=== PATIENT | male | born 1960 | race Caucasian/White ===

== ENCOUNTER 2024-10-13 11:04 | Inpatient (IN) | payer OTHER ==
[~2024-10-13] VITALS: Ht 175.3 cm; Wt 103.5 kg
[~2024-10-13 11:04] MED LIST: AMLO10 PO; HYDACE5325 PO; HYDCHL25 PO; HYDCHL50 PO; LISI20 PO; METO25 PO; METO25ER PO; METO50 PO; Zestril PO
[2024-10-13 11:43] LABS: BASOPHILS ABSOLUTE AUTO 0.09 K/mm3 (0.00-0.23); BASOPHILS PERCENT AUTO 1 % (0-2); EOSINOPHILS ABSOLUTE AUTO 0.11 K/mm3 (0.00-0.68); EOSINOPHILS PERCENT AUTO 1 % (0-6); Hematocrit 52.6 % (37.0-53.0); Hemoglobin 17.1 g/dL (13.5-17.5); IMMATURE GRAN ABSOLUTE AUTO 0.04 K/mm3 (0.00-0.10); IMMATURE GRAN PERCENT AUTO 0 % (0-1); LYMPHOCYTES ABSOLUTE AUTO 2.52 K/mm3 (0.84-5.20); LYMPHOCYTES PERCENT AUTO 23 % (21-46); MONOCYTES ABSOLUTE AUTO 0.51 K/mm3 (0.16-1.47); MONOCYTES PERCENT AUTO 5 % (4-13); Mean Corpuscular HGB Conc 32.5 g/dL (31.5-36.5); Mean Corpuscular Volume 90 fL (80-100); NEUTROPHILS ABSOLUTE AUTO 7.86 K/mm3 (1.96-9.15); NEUTROPHILS PERCENT AUTO 71 % (41-73); NRBC ABSOLUTE 0.00 K/mm3 (0.00-0.02); NRBC Auto 0.0 /100 WBC (0.0-0.2); Platelet Count 360 K/mm3 (150-400); RDW Coefficient Variation 15.7 % (11.7-14.2); RDW Standard Deviation 51.4 fL (35.1-46.3)
[2024-10-13 12:00] LABS: Alanine Aminotransfer (ALT/SGP 21.0 U/L (12-78); Albumin, Blood 3.4 g/dL (3.4-5.0); Albumin/Globulin Ratio 0.7 (0.8-1.8); Anion Gap 10.0 mmol/L (3-11); Aspartate Aminotrans (AST/SGOT 20.0 U/L (12-37); Bilirubin, Total 0.9 mg/dL (0.1-1.0); Blood Urea Nitrogen 15.0 mg/dL (8-24); CO2, Blood 26.0 mmol/L (21-32); Calcium, Blood 9.1 mg/dL (8.5-10.1); Chloride, Blood 106.0 mmol/L (98-108); Creatinine, Blood 1.31 mg/dL (0.60-1.20); Globulin, Blood 5.1 g/dL (2.2-4.0); Glucose, Blood 114.0 mg/dL (70-99); Potassium, Blood 3.6 mmol/L (3.5-5.5); Sodium, Blood 138.0 mmol/L (136-145); Total Protein, Blood 8.5 g/dL (6.4-8.2)
[2024-10-13 12:03] LABS: Prothrombin Time Results 11.4 Sec (9.7-11.5)
[2024-10-13] MEDS ORDERED: Saline Nasal Spray 45 ML PRN (15:25)
[2024-10-13 16:24] LABS: CHOL/HDL RATIO 5.0; Cholesterol 196 mg/dL (50-200); HDL Cholesterol 39 mg/dL (>39); LDL/HDL RATIO 3.5; Low Density Lipoprotein Chol 137 mg/dL (0-110); Triglycerides 100 mg/dL (30-160); Very Low Density Lipoprot Chol 20 mg/dL (6-32)
[2024-10-13] MEDS ORDERED: Insulin Regular 100 UNIT/ML 10ML Vial SC SCH (16:30)
[2024-10-13 17:25] VITALS: BP 229/137
[2024-10-13 19:37] VITALS: BP 207/128
[2024-10-14 00:48] VITALS: BP 186/116
[2024-10-14 04:46] VITALS: BP 193/111
[2024-10-14 05:18] LABS: BASOPHILS ABSOLUTE AUTO 0.12 K/mm3 (0.00-0.23); BASOPHILS PERCENT AUTO 1 % (0-2); EOSINOPHILS ABSOLUTE AUTO 0.42 K/mm3 (0.00-0.68); EOSINOPHILS PERCENT AUTO 4 % (0-6); Hematocrit 47.8 % (37.0-53.0); Hemoglobin 15.7 g/dL (13.5-17.5); IMMATURE GRAN ABSOLUTE AUTO 0.05 K/mm3 (0.00-0.10); IMMATURE GRAN PERCENT AUTO 0 % (0-1); LYMPHOCYTES ABSOLUTE AUTO 4.00 K/mm3 (0.84-5.20); LYMPHOCYTES PERCENT AUTO 33 % (21-46); MONOCYTES ABSOLUTE AUTO 0.81 K/mm3 (0.16-1.47); MONOCYTES PERCENT AUTO 7 % (4-13); Mean Corpuscular HGB Conc 32.8 g/dL (31.5-36.5); Mean Corpuscular Volume 89 fL (80-100); NEUTROPHILS ABSOLUTE AUTO 6.62 K/mm3 (1.96-9.15); NEUTROPHILS PERCENT AUTO 55 % (41-73); NRBC ABSOLUTE 0.00 K/mm3 (0.00-0.02); NRBC Auto 0.0 /100 WBC (0.0-0.2); Platelet Count 309 K/mm3 (150-400); RDW Coefficient Variation 15.8 % (11.7-14.2); RDW Standard Deviation 51.0 fL (35.1-46.3)
[2024-10-14 05:39] LABS: Alanine Aminotransfer (ALT/SGP 17.0 U/L (12-78); Albumin, Blood 3.0 g/dL (3.4-5.0); Albumin/Globulin Ratio 0.7 (0.8-1.8); Anion Gap 7.0 mmol/L (3-11); Aspartate Aminotrans (AST/SGOT 16.0 U/L (12-37); Bilirubin, Total 0.7 mg/dL (0.1-1.0); Blood Urea Nitrogen 20.0 mg/dL (8-24); CO2, Blood 24.0 mmol/L (21-32); Calcium, Blood 8.4 mg/dL (8.5-10.1); Chloride, Blood 109.0 mmol/L (98-108); Creatinine, Blood 1.31 mg/dL (0.60-1.20); Globulin, Blood 4.4 g/dL (2.2-4.0); Glucose, Blood 100.0 mg/dL (70-99); Potassium, Blood 3.4 mmol/L (3.5-5.5); Sodium, Blood 137.0 mmol/L (136-145); Total Protein, Blood 7.4 g/dL (6.4-8.2)
--- NOTE | 2024-10-14 05:50 | NUR ---
SHIFT SUMMARY PT HERE FOR CVA. PT HAS BEEN RESTING IN BED COMFORTABLY. HE HAS BEEN AOX4, CALM AND COOPERATIVE. HE CALLS APPROPRIATELY. PT HAS BEEN ON TELE, NO EVENTS OVERNIGHT. HIS BP HAS BEEN HIGH, ALBEIT W/IN PARAMETERS. PT HAS BEEN ASYMPTOMATIC. PT HAS BEEN SBA OOB. PT HAS HAD NO COMPLAINTS, AND NO ACUTE EVENTS OVERNIGHT.
[2024-10-14 07:23] VITALS: BP 197/120
[2024-10-14] MEDS ORDERED: Enoxaparin 40 MG/0.4 ML SYR SC SCH (09:00)
[2024-10-14] MEDS ORDERED: Fluticasone 0.05% Nasal Spray SCH (09:00)
--- NOTE | 2024-10-14 09:10 | NUR ---
IN MRI NOW, COOEPRATIVE TO CARE
[2024-10-14 10:07] VITALS: BP 189/103
[2024-10-14 16:16] VITALS: BP 149/104
--- NOTE | 2024-10-14 17:31 | NUR ---
Pt. is awake in bed and welcomes my visit. Pt.is pleasant. Facilitated a life review. Listen with empathy and interest as the Pt. verbalizes his story of having no close family anymore and of friends who are his primary support system. A measure of rapport is established as we consider matters of jose and belief. Pt. displays evidence of trust. Prayed with the Pt. Pt. verbalized gratitude for the spiritual care visit.
--- NOTE | 2024-10-14 18:13 | NUR ---
NO ACUTE CHANGES, POSSIBLE DISCHARGE HOME TOMORROW, VSS, HTN IMPROVING, STAND BY ASSIST, CALL LIGHT WITH IN REACH
[2024-10-14 19:17] VITALS: BP 145/90
[2024-10-15 00:36] VITALS: BP 170/111
[2024-10-15 00:45] VITALS: BP 164/110
[2024-10-15 03:44] VITALS: BP 159/105
--- NOTE | 2024-10-15 04:56 | NUR ---
SHIFT SUMMARY PT A&Ox4 AND COOPERATIVE OF CARE. PT C/O CHRONIC BACK PAIN THAT IS WORSE WITH MOVEMENT, MEDICATED PER EMAR WITH GOOD EFFECT. SBA WITH FWW. PT REPORTS BASELINE WEAKNESS BUT THAT RIGHT SIDE WEAKNESS HAS RESOLVED. BP STILL ELEVATED BUT DID NOT MEET PARAMETERS FOR PRN HYDRALAZINE. PT SR IN THE 80's ON TELE. BED IN LOWEST POSITIOIN AND CALL LIGHT IN REACH.
[2024-10-15 07:03] VITALS: BP 155/101
[2024-10-15 09:04] LABS: Anion Gap 7.0 mmol/L (3-11); Blood Urea Nitrogen 23.0 mg/dL (8-24); CO2, Blood 24.0 mmol/L (21-32); Calcium, Blood 8.7 mg/dL (8.5-10.1); Chloride, Blood 110.0 mmol/L (98-108); Creatinine, Blood 1.33 mg/dL (0.60-1.20); Glucose, Blood 107.0 mg/dL (70-99); Potassium, Blood 3.8 mmol/L (3.5-5.5); Sodium, Blood 137.0 mmol/L (136-145)
[2024-10-15 10:26] VITALS: BP 160/91
[2024-10-15] MEDS ORDERED: ACET500 PO (14:00)
[2024-10-15] MEDS ORDERED: AMLO10 PO (14:00)
[2024-10-15] MEDS ORDERED: ATOR40TA PO (14:01)
[2024-10-15] MEDS ORDERED: Flonase 0.05% N16 GM (14:01)
[2024-10-15] MEDS ORDERED: CARV3.125 PO (14:01)
[2024-10-15] MEDS ORDERED: ASPI81CH PO (14:02)
[2024-10-15] MEDS ORDERED: Prinivil10 MG PO (14:02)
--- NOTE | 2024-10-15 15:28 | NUR ---
DISCHARGE NOTE MR CANTRELL WAS ORIENTATED X4. WEAKNESS TO RIGHT LEG WHEN LIFTING OR WALKING. SOME COORDINATION DIFFICULTIES WITH RIGHT ARM, FINGER TO FINGER/NOSE LESS ACCURATE ON RIGHT SIDE AND MR CANTRELL IS SUPPORTING HIS HAND WHEN PICKING UP A WATER CUP. WALKING INTO THE BATHROOM WITH FWW. HE WAORKED WITH PT AND OT TODAY. EDUCATION DISCUUSED , PAPERWORK FOR EDUCATION PRINTED OUT TO GIVE PT OPPORTUNITY TO ASK QUESTIONS. PT GIVEN WRITTEN AND VERBAL DISCHARGE INSTRUCTIONS AND HE VERBALISED UNDERSTANDING. NO NEW QUESTIONS OR CONCERNS PRIOR TO DISCHARGE. PIV REMOVED INTACT. TELEMETRY REMOVED. DISCHARGED VIA W/C WITH FIRE INSPECTOR/FRIEND AT 1512HRS.
== END 2024-10-15 15:26 | disposition home or self-care (01) | DRG 65 ==
LOC: ER 11:04 → MEDS 11:05 → ER 11:05 → MEDS 11:06 → ENPENDDIS 10-15 12:42 → MEDS 10-15 15:26
PROVIDERS: Emergency Medicine; ADMIT Internal Medicine
DX: I63.81 Other cerebral infarction due to occlusion or stenosis of small artery (principal); G81.91 Hemiplegia, unspecified affecting right dominant side; I12.9 Hypertensive chronic kidney disease with stage 1 through stage 4 chronic kidney disease, or unspecified chronic kidney disease; N18.31 Chronic kidney disease, stage 3a; I16.0 Hypertensive urgency; J32.8 Other chronic sinusitis; R73.03 Prediabetes; R29.702 NIHSS score 2; Z88.0 Allergy status to penicillin; Z60.2 Problems related to living alone
CPT/HCPCS: 36415; 70450; 70551; 80048; 80053; 80061; 82947; 83036; 84443; 85025; 85610; 85730; 93005; 93010; 93306; 93880; 96372; 97110; 97112; 97116; 97162; 97165; 97530; 99285-25; A9270; G0378; J1650; J1815